=== PATIENT | male | born 1960 | race Caucasian/White ===

== ENCOUNTER 2016-12-02 13:10 | Emergency (ER) | payer OTHER ==
--- NOTE | 2016-12-02 13:35 | ERNOTE ---
Upper Extremity HPI - Narrative Date of Service: 12/02/16 - General Extremities Pain Location: 3rd finger: right Time Seen by Provider: 12/02/16 13:28 Source: patient, RN notes reviewed Exam Limitations: no limitations - Immun/Allergies/Home Medications Immunizations: IMMUNIZATION HX Immunizations Up to Date Yes History of Influenza Vaccine Yes Hx Pneumococcal Vaccination Yes Allergies/Adverse Reactions: Allergies Allergy/AdvReac Type Severity Reaction Status Date / Time No Known Allergies Allergy Unverified 12/02/16 13:21 Home Medications: HOME MEDICATIONS Lantus 15 SQ HS 12/02/16 [Last Taken Unknown] metFORMIN HCL [Metformin HCl ER] 1,000 mg PO BID 12/02/16 [Last Taken Unknown] - History of Present Illness Narrative: 56 y/o male ambulatory to the ED for a crush injury to his right middle fingertip. He was moving a cement block and dropped it on his finger. He reports bleeding from under the fingernail for some time afterward. This has stopped. He is right handed. Occurred: this morning Location of Incident: home Associated Symptoms: Denies: tingling, weakness, numbness distally Other Injuries: Reports: none Review of Systems - Review of Systems Constitutional: Present: no symptoms reported EYE: Present: no symptoms reported ENT: Present: no symptoms reported Respiratory: Present: no symptoms reported Cardiology: Present: no symptoms reported Gastrointestinal/Abdominal: Present: no symptoms reported Genitourinary: Present: no symptoms reported Musculoskeletal: Absent: joint pain, joint swelling Skin: Absent: lesions, lumps, change in color Neurological: Absent: weakness, numbness, tingling Endocrine: Present: no symptoms reported Hematologic/Lymphatic: Absent: easy bruising, easy bleeding Psych: Present: no symptoms reported - Patient's Past Medical History Patient History - Medical: Diabetes Type 2 Insulin Dependent Patient History - Cardiac/Respiratory: No pertinent hx Patient History - Cancer: No Hx of Cancer Patient History - Surgical Procedures: T & A Patient History - Other: None - Social History Living Situations: other Abuse History: No History of abuse Psych History: No pertinent hx Smoking Status: Former smoker Have you smoked in the past 12 months: No Do you dip or chew tobacco: No Alcohol Use: none Drug Use: none - Immunizations Immunizations Up to Date: Yes Hx Pneumococcal Vaccination: Yes History of Influenza Vaccine: Yes Physical Exam - Physical Exam General Appearance: Present: wd/wn, alert, no apparent distress Respiratory: Present: no respiratory distress, no accessory muscle use Extremity Exam: Present: normal range of motion, other - swelling to tip of right 3rd finger, hematoma present under nail that has drained spontaneously, no tenderness or edema at DIP or PIP joints. Absent: joint swelling Neurological Exam: Present: alert, oriented, normal mood/affect, no motor/ sensory deficits Skin Exam: Present: normal color, warm/dry ED Progress - Vital Signs Patient's Vital Signs:: I have reviewed the patient's vital signs. Vital Signs: Vital Signs 12/02/16 13:14 Temperature 36.2 C L Pulse Rate 61 Respiratory 15 Rate Blood Pressure 153/82 O2 Sat by Pulse 100 Oximetry - X-Ray X-Ray #1 X-Ray: hand Interpretation: Reviewed by me X-ray Comments: TECHNIQUE: AP view of the right hand, and oblique and lateral views of the third finger. COMPARISONS: None available. Finger Minimum 2 Views RT * FINDINGS/IMPRESSION: 1. AP image of the hand demonstrates a 3 mm in length curvilinear ossific density distal to the radial aspect of the distal tip of the third digit, displaced approximately 1-2 mm away from the rest of the distal phalanx/tuft. Most likely, given clinical history this represents displaced distal tuft fracture. 2. On the lateral image, there is a 2 x 3 mm ossific fragment seen at the volar aspect of the third proximal interphalangeal joint near the base of the third middle phalanx. Could represent a possible volar plate avulsion fracture of indeterminate age. Correlate clinically. 3. Joint spaces are in gross normal alignment without subluxation or dislocation. 4. Soft tissue swelling noted at the distal aspect of the third digit. Electronically signed by Don Galicia M.D.. - Progress/Reassessment Chief Complaint: Hand Injury/Pain Progress:: Unchanged Procedures Location: Right distal 3rd finger Pre-Proc Neuro Vasc Exam: normal Pre-Made Type: metal Splint: alumiform finger-tip Splint applied by: Nurse Post-Proc Neuro Vasc Exam: normal Complications: Pt renato procedure well Departure Clinical Impression: Closed fracture of tuft of distal phalanx of finger Qualifiers: Encounter type: initial encounter Qualified Code(s): S62.639A - Displaced fracture of distal phalanx of unspecified finger, initial encounter for closed fracture Subungual hematoma of finger of right hand Qualifiers: Encounter type: initial encounter Qualified Code(s): S60.10XA - Contusion of unspecified finger with damage to nail, initial encounter - Departure Disposition: Home self-care Condition: Good Instructions: Finger Fracture, [id number] Additional Instructions: Ice and elevate Wear splint to protect finger as needed Tylenol and/or ibuprofen for pain if needed Referrals: Darrin Christianson MD [Primary Care Provider] -
[2016-12-02 14:07] VITALS: BP 144/75
== END 2016-12-02 14:09 | disposition home or self-care (01) ==
LOC: ER 13:10
PROC: 2W3JX1Z Immobilization of Right Finger using Splint (ICD-10-PCS; principal; 2016-12-02)
DX: S62.632A Displaced fracture of distal phalanx of right middle finger, initial encounter for closed fracture (principal); S60.131A Contusion of right middle finger with damage to nail, initial encounter; Z87.891 Personal history of nicotine dependence; E11.9 Type 2 diabetes mellitus without complications; W23.0XXA Caught, crushed, jammed, or pinched between moving objects, initial encounter; Y92.009 Unspecified place in unspecified non-institutional (private) residence as the place of occurrence of the external cause